=== PATIENT | male | born 2005 | race Caucasian/White ===

== ENCOUNTER 2023-10-26 09:23 | Outpatient (RCR) | payer OTHER, SELFPAY | END 2023-10-26 23:59 | disposition home or self-care (01) | LOC: RPT 09:23 | PROVIDERS: ATTENDING PHYSICIAN Physical Medicine & Rehabilitation; FAMILY PHYSICIAN Family Medicine | DX: S06.0X0D Concussion without loss of consciousness, subsequent encounter (principal); R41.841 Cognitive communication deficit; R41.844 Frontal lobe and executive function deficit | CPT/HCPCS: 97110; 97112; 97116; 97129; 97130; 97530; 97535 ==

== ENCOUNTER 2023-11-04 10:02 | Outpatient (RCR) | payer OTHER, SELFPAY | END 2023-11-07 12:21 | disposition home or self-care (01) | LOC: RPT 10:02 | PROVIDERS: ATTENDING PHYSICIAN Physical Medicine & Rehabilitation; FAMILY PHYSICIAN Family Medicine | DX: S06.9X9D Unspecified intracranial injury with loss of consciousness of unspecified duration, subsequent encounter (principal); R41.841 Cognitive communication deficit; R41.844 Frontal lobe and executive function deficit; Z73.6 Limitation of activities due to disability; V44.5XXD Car driver injured in collision with heavy transport vehicle or bus in traffic accident, subsequent encounter | CPT/HCPCS: 97110; 97112; 97116; 97129; 97130; 97140; 97530 ==

== ENCOUNTER → 2023-11-11 13:29 | Outpatient (REF) | payer OTHER, SELFPAY | LOC: RAD 13:29 | PROVIDERS: ATTENDING PHYSICIAN Physician Assistant Medical; FAMILY PHYSICIAN Family Medicine | DX: S02.91XD Unspecified fracture of skull, subsequent encounter for fracture with routine healing (principal) | CPT/HCPCS: 70480 ==

== ENCOUNTER → 2023-11-25 13:23 | Outpatient (REF) | payer OTHER, SELFPAY | LOC: WOUND 13:23 | PROVIDERS: ATTENDING PHYSICIAN Surgery; FAMILY PHYSICIAN Family Medicine | DX: L97.112 Non-pressure chronic ulcer of right thigh with fat layer exposed (principal); F41.8 Other specified anxiety disorders; S06.9XAA Unspecified intracranial injury with loss of consciousness status unknown, initial encounter; X58.XXXA Exposure to other specified factors, initial encounter | CPT/HCPCS: 99212 ==